=== PATIENT | female | born 1995 | race Caucasian/White ===

== ENCOUNTER → 2017-08-22 | Outpatient (CLI) | payer OTHER ==
--- NOTE | ~2017-08-22 | EKG ---
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 <ELECTRONICALLY SIGNED> By: Leland Saucedo MD 08/22/17 2153 [id number] 1541 Leland Saucedo MD /EPI
== END ==
LOC: CV 15:10
DX: R42 Dizziness and giddiness (principal); R11.10 Vomiting, unspecified

== ENCOUNTER → 2020-12-22 | Outpatient (CLI) | payer OTHER | LOC: MRI 10:18 | PROVIDERS: ATTEND Family Medicine | DX: M62.838 Other muscle spasm (principal); M54.12 Radiculopathy, cervical region; Z88.0 Allergy status to penicillin; Z88.2 Allergy status to sulfonamides ==

== ENCOUNTER → 2021-01-12 | Outpatient (CLI) | payer OTHER ==
[~2021-01-12] VITALS: Ht 167.6 cm; Wt 59.9 kg
[~2021-01-12] MED LIST: ADDERALL 10 MG10 MG PO; ADDERALL XR 1515 MG PO; ALLER-FEX180 MG PO; BACLOFEN 10MG T10 MG PO; FLONASE 0.05%50 MCG NASAL; LOESTRIN1 EAC1 PO; MEFENAMIC ACID250 MG PO; TYLENOL EXTRA500 MG PO; ZANAFLEX4 MG PO; [UNRECOGNIZED DRUG - OTHER] PO; [UNRECOGNIZED DRUG - OTHER] PO
[2021-01-12 15:00] VITALS: BP 103/59
--- NOTE | 2021-01-12 15:14 | NUR ---
Pain Clinic Assessment: 1. History of Osteoarthritis: Not Applicable History of Rheumatoid Arthritis: Not Applicable 2. Height: 5 ft. 6 in. 167.6 cm. Weight: 132.0 lb. oz. 59.875 kg. Patient's BMI: 21.3 3. Vital Signs: BP: 103/59 Pulse: 110 Resp: 14 Temp: 02 Sat: 100 ECG Mon: 4. Pain Intensity: 4 5. Fall Risk: Dizziness: N Needs help standing or walking: N Fallen in the last 3 months: N Fall risk comments: 6. Patient on Blood Thinner: 7. History of Hypertension: N 8. Opioid Therapy greater than 6 weeks: N Opiate Contract Signed: 9. Risk Assessment Tool Provided: 2 LOW RISK 10. Functional Assessment Tool: 50/70 11. Recreational Drug Use: Never Drug Type: Tobacco Use: Never Smoker Tobacco Type: Amount or Packs/day: How Many Years: Alcohol Use: Yes Frequency: Weekly Quant: 2-3
--- NOTE | 2021-01-13 07:43 | HPC ---
[facility] [address] [place] [address] PAIN MANAGEMENT CONSULTATION Name: LUIGI VYAS Room #: REG BARB [facility].#: [id number] Admission: 01/12/21 Attend Phys: Germain Adhikari DO Discharge: Date of : [birth year] Report #: [id number] THIS REPORT FOR: cc: Ankur Mckeon MD, Neal A. MD Johnson, James E. DO ~ DATE OF SERVICE: 01/12/2021 REFERRING PHYSICIAN: Ankur Mckeon MD CHIEF COMPLAINT: Neck pain, upper back and mid back pain. HISTORY OF PRESENT ILLNESS: As you know, the patient is a very pleasant 25-year-old female who reports a longstanding history of neck pain, upper back pain, mid back pain that presented late 2018 without inciting injury or trauma. The patient states pain has progressively worsened. She had tried [id number]-xgs-[id number] medication without much in the way of benefit. She sought evaluation through her PCP who trialed different treatment options, ultimately having the patient undergo MRI of the cervical spine. Reports of the cervical spine showed no pathology. Due to continued ongoing pain issues, the patient was subsequently referred to our clinic. The patient reports pain is continuous, steady, constant, rhythmic and periodic. She describes the pain as shooting, cramping, throbbing, sharp, stabbing and pounding. She places current pain score 4/10, daily average 6/10, worst pain has been is 8-1/2/10. 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 She states pain is improved slightly with tizanidine, warm or cool baths, massage therapy, diclofenac gel. She indicates pain typically begins in the cervical, upper thoracic area, radiates to just below the scapula, but not along the spinous processes. She describes the pain more as myofascial in origin. She also is complaining of cervicogenic headache, radiating from the right upper neck towards the occiput. She has been referred to our service to discuss treatment options for myofascial pain. PAST MEDICAL HISTORY: ADHD. PAST SURGICAL HISTORY: [place] teeth extraction. 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 She is working, not receiving workmen's compensation nor is trying to obtain discrete benefits. She is not in litigation in regards to pain. She is unaccompanied at today's visit. REVIEW OF SYSTEMS: Positive for fatigue and weakness, headaches, chronic sinus problems with rhinitis, shortness of breath, painful menses, irregular menses [address] [address] PAIN MANAGEMENT CONSULTATION Name: LUIGI VYAS Room #: REG [facility] Bernarda.#: [id number] Admission: 01/12/21 Attend Phys: Germain Adhikari DO Discharge: Date of : [birth year] Report #: [id number] and vaginal discharge, frequent and recurrent headaches, lightheadedness, dizziness, neck pain and upper back pain, mid back pain. All other review of systems negative per 12-point review of systems other than those listed in history of present illness. Pain impact score 42/70 indicating moderate interference with daily activities secondary to pain. ALLERGIES: PENICILLIN AND SULFA DRUGS. CURRENT MEDICATIONS: Norethindrone A-E 1 tab per day, mefenamic acid 250 mg once a day, acetaminophen 500 mg t.i.d., Adderall 10 mg once a day, Adderall XR 50 mg 1 tablet per day, fexofenadine 180 mg per day, tizanidine 4 mg 3 times a day, fluticasone 2 sprays each nostril per day. IMAGING: MRI cervical spine obtained 12/22/2020 shows C1-C2, C2-C3 C3-C4, C4-C5, C5-C6 and C6-C7 unremarkable. No central canal nor neural foraminal stenosis. PHYSICAL EXAMINATION: VITAL SIGNS: Blood pressure 103/59, pulse 110, respiratory rate 14 and unlabored. The patient is 100% on room air. Height 5 feet 6 inches tall, weight 132 pounds, BMI calculated 21.3. GENERAL: Well-developed, well-nourished, well-hydrated 25-year-old female appearing her stated age. She is placing current pain score around 4/10. HEENT: Normocephalic, atraumatic. Pupils equal, round, and responsive. The patient is deemed a good historian. She is wearing a mask in compliance with COVID-19 regulations. LUNGS: Clear. No wheeze, rhonchi or rales. CHEST: Shows pectus excavatum. CARDIOVASCULAR: Regular. No appreciable gallop, no rub. ABDOMEN: Soft, nontender. EXTREMITIES: Show no clubbing, no cyanosis, no edema. MUSCULOSKELETAL: The patient has palpatory tenderness over the paraspinal musculature of the lower, thoracic, mid thoracic and upper thoracic levels. There are multiple tender points, no specific trigger points. No spinous process tenderness. Upper extremity strength equal and symmetrical 5/5, intact to light touch from C5 to T1 dermatomes, again from T1 through T12 dermatomes. There are no rashes, lesions, or ulcerations on the skin. Cervical provocation testing is met with no increase in overall pain. There is palpatory tenderness over the paraspinal musculature of cervical spine. No spinous process tenderness. Spurling's test is negative. Upper extremity strength is 5/5. ASSESSMENT: 1. Pectus excavatum. 2. Myofascial pain related to #1. [facility] [address] [address] PAIN MANAGEMENT CONSULTATION Name: LUIGI VYASLYN Room #: REG BARB [facility]#: [id number] Admission: 01/12/21 Attend Phys: Germain Adhikari DO Discharge: Date of : [birth year] Report #: [id number] PLAN: 1. Based on today's physical exam and history the patient has provided, the description of the patient uses in regards to pain, it would appear the patient is suffering from symptoms related to her pectus excavatum. We have discussed with the patient the pathophysiology of pectus excavatum, and she fits with every symptomology known for that disease process. She has had shortness of breath throughout her entire adolescence and into adulthood stating she cannot seem to get a good solid breath. She has shoulders that are rotated forward consistent with the pectus excavatum anatomy. She is also experiencing the upper back, mid back pain consistent with pectus excavatum. The fact that her cervical spine is normal from an imaging standpoint, this would lead one to believe the source of her symptoms are consistent with the pectus excavatum and the subsequent myofascial symptoms related to that process. We discussed this with the patient today in completeness, spending over 40 minutes of time discussing with the patient the findings and physical exam and how they relate to her current symptoms. After that discussion, we discussed treatment options. Following was discussed with the patient as treatment course. We discussed physical therapy, stretching exercises and traction techniques to help with the cervicogenic myofascial symptoms. Stretching exercises, myofascial release techniques and possibly acupuncture therapy can help with the myofascial symptoms of the thoracic area. We discussed adjustments in medication management, utilizing a muscle relaxant on a fairly consistent basis. She is noticing some improvement with tizanidine, but noticed no improvement with methocarbamol. An adjustment in that medication might be beneficial. We discussed also bracing for her pectus excavatum. One of the braces we discussed was the pectus press device that will help position her more appropriately anatomically. There are multiple sources of these types of braces and she will look into one that best fits her situation. We also discussed with the patient trigger point injections and Botox injections as a possible treatment course, though without correcting the mechanical portion of the patient's symptoms, these treatments would be limited in their efficacy. After reviewing the risks and benefits of all proposed treatment options, the patient chose to move forward with medication adjustments and to obtain a pectus press type of bracing system. 2. The patient will discontinue the use of tizanidine and methocarbamol, in place she will be using baclofen. I have given her 10 mg dose 1 tab p.o. t.i.d. 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 She will watch for any side effects of sleepiness, disorientation, confusion, mental slowing with use of the medication. If she notes side effects either reduced to half the dose or discontinue the medication entirely. Prescription of #90 tablets sent to her local pharmacy via e-scribe. 3. The patient will obtain bracing system to adjust for her posture secondary to pectus excavatum. She will look into different bracing systems and determine which one she feels is most appropriate for her, though we did provide the [facility] [address] [place] [address] PAIN MANAGEMENT CONSULTATION Name: LUIGI VYAS Room #: REG [facility]#: [id number] Admission: 01/12/21 Attend Phys: Germain Adhikari DO Discharge: Date of : [birth year] Report #: [id number] patient with information, the fit of that device will make a difference on whether or not she utilizes it frequently. She looked into the bracing systems. If she has difficulty, I am sure we can provide her a referral to [facility] who has been dealing with pectus excavatum the patient's for an extended period of time for possible surgical consideration or they may be able to provide better bracing systems than we can obtain currently. 4. We plan to see the patient back in followup visit in 1 month. 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 We have given the patient ways to correct for her ergonomics at work, and we are hopeful that those will be beneficial. We will plan to see her back in 30 days to review the efficacy of the medication as well. We are hopeful by that time the patient is also obtain the brace and we can determine whether or not this is going to be an effective treatment for her long-term. 5. We wish to thank Dr. Mckeon for the referral of the patient to our clinic. We will keep you apprised of her response to treatment as we address the myofascial symptoms secondary to her pectus excavatum. We are hopeful that the adjustments in the work space with adjustments in her ergonomics, the addition of the baclofen for the muscle spasming as well as the bracing system to change her position anatomically will improve her symptoms. We will keep you apprised of whether or not this is effective. Once she is stabilized on a dose of treatment that appears effective, we will be returning her care to your capable services. Again, we wish to thank you for the opportunity to see the patient in consultation. <ELECTRONICALLY SIGNED> By: Germain Adhikari DO 01/13/21 0743 [id number] 2229 Germain Adhikari DO /nt
== END ==
LOC: PAIN 07:12
PROVIDERS: ATTEND Anesthesiology Pain Medicine
DX: M54.2 Cervicalgia (principal); M54.6 Pain in thoracic spine

== ENCOUNTER → 2021-02-16 | Outpatient (CLI) | payer OTHER ==
[~2021-02-16] VITALS: Ht 167.6 cm; Wt 60.5 kg
[~2021-02-16] MED LIST changes: +MUCINEX100 MG PO
--- NOTE | ~2021-02-16 | HPC ---
[facility] [place] [address] PAIN MANAGEMENT CONSULTATION Name: LUIGI VYAS Room #: REG BARB Elise.#: [id number] Admission: 02/16/21 Attend Phys: Germain Adhikari DO Discharge: Date of : [birth year] Report #: [id number] THIS REPORT FOR: cc: Ankur Mckeon MD, Neal A. MD Johnson, James E. DO ~ DOC #: [id number] cc: MD Germain Gramajo, DATE OF SERVICE: 02/16/2021 CHIEF COMPLAINT: Neck pain, upper back pain, mid back pain. HISTORY OF PRESENT ILLNESS: As you know, the patient is a pleasant 25-year-old female with longstanding history of neck pain, upper back pain, mid back pain, presented in late 2018 without inciting injury or trauma. The patient was referred to our clinic after failing conservative treatment option. She was diagnosed with pectus excavatum and myofascial pain related to that disease process. We started the patient on a consistent muscle relaxant to help with pain control. We also provided the patient with suggestions to obtain a clavicular brace such as a [id number]-[id number]-[id number] brace to expand the chest wall, trying to counteract the pectus excavatum positioning with hyper-kyphotic curvature of the thoracic spine with a source of the symptoms. This was advised that the patient at last visit. The patient had trialled an extensive brace, but was not noticing much in the way of improvement in symptoms. She has ordered the specific brace that we discussed about, but has not received this yet. She is taking baclofen 10 mg 3 times a day and noticing some benefit, but wishes further change in the medications as she awaits the bracing system. She returns today with pain score no greater than 5/10. She has been suffering from sinus headaches of late, but her cervicogenic headaches have all but resolved with the adjustments in treatment. ALLERGIES: PENICILLIN, SULFA. CURRENT MEDICATIONS: Norethindrone, mefenamic acid, acetaminophen, Adderall, fexofenadine, tizanidine, fluticasone and baclofen. 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 She reports that she is a nonsmoker. Denies IV or illicit drug use. Admits to 2-3 alcohol beverages per day. She is unaccompanied at today's visit. IMAGING: No new imaging available. PHYSICAL EXAMINATION: VITAL SIGNS: Blood pressure 129/84, pulse is 99, respiratory rate 18 and [facility] [address] [place] [address] PAIN MANAGEMENT CONSULTATION Name: LUIGI VYASLYN Room #: REG [facility] M..#: [id number] Admission: 02/16/21 Attend Phys: Germain Adhikari DO Discharge: Date of : [birth year] Report #: [id number] unlabored. The patient is 96% on room air. Height 5 feet 6 inches tall, weight 133.4 pounds, BMI calculated 21.5. GENERAL: A well-developed, well-nourished, well-hydrated 25-year-old female appearing stated age, pain is rated today around 5/10. HEENT: Normocephalic, atraumatic. Pupils are round and responsive. The patient's extraocular muscles are intact. She is wearing a mask in compliance with COVID-19 regulations. EXTREMITIES: Show no clubbing, no cyanosis, no edema. MUSCULOSKELETAL: Once again, there is no spinous process tenderness noted in the cervical or thoracic spine. Upper extremity strength is symmetrical 5/5. Muscle bulk and tone equal and symmetrical. Cervical provocation testing is met with no increase in pain and has full range of motion. Spurling test is negative. Palpatory tenderness over the paraspinal musculature of the lower cervical and upper thoracic area consistent with hyperkyphosis of the thoracic spine. ASSESSMENT: 1. Pectus excavatum. 2. Myofascial pain related to pectus excavatum and poor posture. PLAN: 1. The patient returns today in followup visit having applied a less expensive bracing system, which has provided some benefit, but she is yet to obtain bracing system that we had specifically discussed, which is the [id number]-pm-bkhpq bracing, which will improve her posture and reduce the effects of the pectus excavatum and forward rolled shoulders causing myofascial pain of the upper thoracic area. The patient's cervicogenic headaches have all but resolved with use of the baclofen and adjustments in her posture today. She has made some changes at her work place as well, which requires less forward flexion of the cervical spine. The bracing system was provided to the patient to address the hyper-kyphosis of the thoracic spine, which will reduce the need for hyperlordotic curvature of the cervical spine to keep her eyes level on her eyes. The combination treatment should be beneficial. I will await the bracing system for more definitive treatment. I will make some adjustments in her muscle relaxant today. 2. We will increase the baclofen medication from 10 mg 3 times a day to 15-20 mg 3 times a day. I have given the patient a prescription of baclofen 10 mg dose to take 1-1/2 tablets to 2 tablets 3 times a day. I have given the patient #180 tablets with 2 refills, 3 months for the medication. This should help with the symptoms of myofascial pain she is experiencing secondary to her poor posture. 3. She can follow up with our clinic for continuation of the baclofen therapy or follow up with her PCP. There is no need for interventional treatment in this patient's case. Conservative treatment addressing her pectus excavatum and secondary myofascial symptoms is most appropriate and this can be done through the primary care team, but she can certainly return to our clinic if she wishes [address] [address] PAIN MANAGEMENT CONSULTATION Name: LUIGI VYAS Room #: REG [facility].#: [id number] Admission: 02/16/21 Attend Phys: Germain Adhikari DO Discharge: Date of : [birth year] Report #: [id number] to do so. We were pleased to see if she is improving. We will see her back in followup visit on an as needed basis. DO JORDAN Abreu/JF By: [id number] [id number] Germain Adhikari DO /nt
[2021-02-16 10:40] VITALS: BP 129/84
--- NOTE | 2021-02-16 10:44 | NUR ---
Pain Clinic Assessment: 1. History of Osteoarthritis: Not Applicable History of Rheumatoid Arthritis: Not Applicable 2. Height: 5 ft. 6 in. 167.6 cm. Weight: 133.4 lb. oz. 60.510 kg. Patient's BMI: 21.5 3. Vital Signs: BP: 129/84 Pulse: 99 Resp: 18 Temp: 02 Sat: 96 ECG Mon: 4. Pain Intensity: 5 5. Fall Risk: Dizziness: N Needs help standing or walking: N Fallen in the last 3 months: N Fall risk comments: 6. Patient on Blood Thinner: None 7. History of Hypertension: N 8. Opioid Therapy greater than 6 weeks: N Opiate Contract Signed: 9. Risk Assessment Tool Provided: 2 LOW RISK 10. Functional Assessment Tool: 50/70 11. Recreational Drug Use: Never Drug Type: Tobacco Use: Never Smoker Tobacco Type: Amount or Packs/day: How Many Years: Alcohol Use: Yes Frequency: Daily Quant: 2
== END ==
LOC: PAIN 07:28
PROVIDERS: ATTEND Anesthesiology Pain Medicine
DX: M79.10 Myalgia, unspecified site (principal); Q67.6 Pectus excavatum

== ENCOUNTER → 2021-09-21 | Outpatient (CLI) | payer OTHER ==
[~2021-09-21] VITALS: Ht 167.6 cm; Wt 62.0 kg
[~2021-09-21] MED LIST changes: +LYRICA 50 MG50 MG PO
[2021-09-21 15:00] VITALS: BP 126/86
--- NOTE | 2021-09-21 15:16 | NUR ---
Pain Clinic Assessment: 1. History of Osteoarthritis: Not Applicable History of Rheumatoid Arthritis: Not Applicable 2. Height: 5 ft. 6 in. 167.6 cm. Weight: 136.6 lb. oz. 61.961 kg. Patient's BMI: 22.1 3. Vital Signs: BP: 126/86 Pulse: 123 Resp: 14 Temp: 02 Sat: 100 ECG Mon: 4. Pain Intensity: 7-8 5. Fall Risk: Dizziness: N Needs help standing or walking: N Fallen in the last 3 months: N Fall risk comments: 6. Patient on Blood Thinner: None 7. History of Hypertension: N 8. Opioid Therapy greater than 6 weeks: N Opiate Contract Signed: 9. Risk Assessment Tool Provided: 2 LOW RISK 10. Functional Assessment Tool: 50/70 11. Recreational Drug Use: Never Drug Type: Tobacco Use: Never Smoker Tobacco Type: Amount or Packs/day: How Many Years: Alcohol Use: Yes Frequency: Quant:
--- NOTE | 2021-09-22 07:55 | HPC ---
[facility] [address] [address] PAIN MANAGEMENT CONSULTATION Name: LUIGI VYAS Room #: REG [facility] [place].#: [id number] Admission: 09/21/21 Attend Phys: Germain Adhikari DO Discharge: Date of : 89 Report #: [id number] THIS REPORT FOR: cc: Ankur Mckeon MD, Neal A. MD Johnson, James E. DO ~ cc: Ankur Mckeon MD DATE OF SERVICE: 09/21/2021 REFERRING PHYSICIAN: Dr. Mckeon. CHIEF COMPLAINT: Left elbow and hand pain. HISTORY OF PRESENT ILLNESS: As you know, the patient is a 26-year-old female with longstanding history of neck pain, upper back pain, and mid back pain that presented late 2018. No inciting injury or trauma. She failed conservative treatment option and was subsequently referred on to our clinic. We advised the patient that the findings of her MRI of 12/22/2020 showed no changes in her cervical spine. In fact, it was a totally normal MRI and that her symptoms were related more to her pectus excavatum. She has been doing well from that standpoint, having a diagnosis of pectus excavatum myofascial symptoms. She began experiencing medial elbow pain, numbness and tingling radiating from the elbow towards the hand, consistent with ulnar neuropathy. The patient denies any injury or trauma to the area that may have caused symptom development. 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 The patient has trialled no conservative treatment options to address this issue. She has not followed up with her PCP in regards to this issue. She returns to our clinic to discuss options for treatment to address this new onset of symptoms. ALLERGIES: PENICILLIN, SULFA. CURRENT MEDICATIONS: Norethindrone, baclofen, mefenamic acid, acetaminophen, Adderall XR and Adderall immediate release, fexofenadine, tizanidine, fluticasone. SOCIAL HISTORY: The patient denies tobacco use. Denies IV or illicit drug use. Admits occasional alcohol beverage. 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 She is working, not receiving workmen's compensation, unaccompanied today. IMAGING: No new imaging available. PHYSICAL EXAMINATION: VITAL SIGNS: Blood pressure 126/86, pulse is 123, respiratory rate 14 and unlabored. The patient 100% on room air. Height 5 feet 6 inches tall, [place] [address] PAIN MANAGEMENT CONSULTATION Name: LUIGI VYAS Room #: [facility].#: [id number] Admission: 09/21/21 Attend Phys: Germain Adhikari DO Discharge: Date of : 89 Report #: [id number] 136.6 pounds, BMI calculated 22.1. GENERAL: Well-developed, well-nourished, well-hydrated 26-year-old female, appears stated age, no acute distress. Awake, alert and oriented x3. Pain is rated 7-8/10. HEENT: Normocephalic, atraumatic. Pupils equal, round. Wearing a mask in compliance with COVID-19 regulations. EXTREMITIES: Show no clubbing, no cyanosis, no edema. MUSCULOSKELETAL: The patient has palpatory tenderness over the medial aspect of the left elbow, deep palpation in area causes intensification of pain with radiation towards the fourth and fifth digits on the left side consistent with ulnar neuropathy. Tinel's sign is mildly positive. ASSESSMENT: Ulnar neuropathy. PLAN: 1. Based on today's physical exam and history the patient has provided, the description the patient uses in regards to pain, the likely source of the patient's symptoms is an ulnar neuropathy involving the left upper extremity. The patient and I discussed at length that the options for treatment should remain conservative. The following treatment options were discussed with the patient today. We discussed physical therapy, stretching exercises and reassessment of the patient's work area as well as adjustments in her work positioning and ergonomic design of the work space she is currently working in to reduce the pressure on the medial aspect of the left elbow consistent with her ulnar neuropathy. We discussed medication management utilizing neuropathic medication such as amitriptyline, nortriptyline, Cymbalta, Lyrica or gabapentin. We discussed surgical transposition of the ulnar nerve. After reviewing risks and benefits of all proposed treatment options, the patient chose to make adjustments in medication management. 2. We have discussed with the patient adjustments in her ergonomic design of her space where she is currently working. She needs to decrease leaning on the elbows at any time. 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 This will remove the opportunity to lean on to the elbow causing compressive forces externally and leading to a neuropraxia of the ulnar nerve. I am not concerned of axonotmesis or neurotmesis at this juncture, it does appear to be more of a neuropraxia. We discussed ergonomic adjustments would be the most efficient way of correcting the patient's symptoms today. 3. The patient will be started on Lyrica 50 mg dose 1 tab p.o. at bedtime for 7 nights. If no improvement in symptoms, no side effects, then increase to 100 mg p.o. at bedtime for 7 nights. If improvement in symptoms are noted in the evening hours, but continues to experience day time issue, she will then begin 1 tab in the morning or 50 mg for 7 days, continuing the 100 mg at night. If no improvement in symptoms, no side effects of sleepiness, disorientation, confusion, mental slowing, then increase to 100 mg b.i.d. The patient was given [facility] [address] [place] [address] PAIN MANAGEMENT CONSULTATION Name: LUIGI VYAS Room #: [facility].#: [id number] Admission: 09/21/21 Attend Phys: Germain Adhikari DO Discharge: Date of : 89 Report #: [id number] a prescription of Lyrica 50 mg tablets, #120 with refills. The patient was advised to watch for side effects of medication including sleepiness, disorientation, confusion, mental slowing. If she notes any side effects, discontinue immediately. 4. The patient will be following up with her primary care team in regards to the left ulnar neurapraxia. I am hopeful that adjustments in her daily home routine and her work environment along with use of medication will improve her symptoms. If further evaluation or treatment is necessary, we would recommend a referral to Neurology. <ELECTRONICALLY SIGNED> By: Germain Adhikari DO 09/22/21 [id number] Germain Adhikari DO /bj
== END ==
LOC: PAIN 10:51
PROVIDERS: ATTEND Anesthesiology Pain Medicine
DX: M25.522 Pain in left elbow (principal); M79.642 Pain in left hand; G56.22 Lesion of ulnar nerve, left upper limb; Z88.0 Allergy status to penicillin; Z88.8 Allergy status to other drugs, medicaments and biological substances; Z79.899 Other long term (current) drug therapy